=== PATIENT | male | born 1985 | race Two or more races ===

== ENCOUNTER 2019-01-04 18:37 | Emergency (ER) | payer MEDICAID ==
[~2019-01-04] VITALS: Ht 193 cm; Wt 108.9 kg
[2019-01-04 18:28] VITALS: BP 110/80
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
[~2019-01-04 18:37] MED LIST: CELEXA20 MG ORAL; LISINOPRIL20 MG ORAL; SEROQUEL200 MG ORAL; TERAZOSIN HCL1 MG ORAL; TRAZODONE HCL50 MG ORAL
--- NOTE | 2019-01-04 18:40 | NUR ---
ED Nurse Note: pt denies SI/HI, denies hearing voices or seeing things.
[2019-01-04] MEDS ORDERED: TERAZOSIN HCL1 MG ORAL (18:46)
[2019-01-04] MEDS ORDERED: SEROQUEL200 MG ORAL (18:46)
[2019-01-04] MEDS ORDERED: TRAZODONE HCL50 MG ORAL (18:46)
[2019-01-04] MEDS ORDERED: CELEXA20 MG ORAL (18:46)
[2019-01-04] MEDS ORDERED: LISINOPRIL20 MG ORAL (18:46)
[2019-01-04 18:55] VITALS: BP 110/80
--- NOTE | 2019-01-04 18:55 | NUR ---
ER DISCHARGE NOTE: token provide as requested. psych facility information provide. pt refused to do mini-cog. Patient is cleared to be discharged per ERMD with prescriptions, pt is aox4, on room air, with stable vital signs. pt was given dc and prescription instructions, pt was able to verbalize understanding, pt id band removed. pt is able to ambulate with steady gait. pt took all belongings.
--- NOTE | 2019-01-04 19:05 | NUR ---
ED Nurse Note: Pt overheard by registration staff on the phone saying, "I'm going to kill myself." This nurse went to check on the patient - he responded saying, "I told them I want to go to a [facility]", I asked if he had referrals - no c/o SI.
--- NOTE | 2019-01-04 19:10 | NUR ---
ED Nurse Note: Received report from Susan/ [facility]. Pt has been d/c'd. Waiting for [facility] for transprotation.
--- NOTE | 2019-01-04 19:15 | NUR ---
ED Nurse Note: Luli has provided and handed over to pt by Odin.
--- NOTE | 2019-01-06 07:08 | Emergency Room Report ---
History of Present Illness General Chief Complaint: Medication Refill Source: Patient, EMS Present Illness HPI 34-year-old male presents ED for evaluation. Patient brought in by EMS stating that he needs refills of his medications. History of bipolar. Denies SI or HI. Denies hearing voices. States that he ran out of his medications a few days ago. Denies alcohol or drug use. No other aggravating relieving factors. Denies any other associated symptoms Allergies: Coded Allergies: No Known Allergies (Unverified , 01/04/19) Patient History Past Medical History: psych hx Past Surgical History: none Pertinent Family History: none Social History: Denies: smoking, alcohol use, drug use Immunizations: UTD Reviewed Nursing Documentation: PMH: Agreed; PSxH: Agreed Nursing Documentation-PMH Hx Hypertension: Yes History Of Psychiatric Problem: Yes - bipolar Review of Systems All Other Systems: negative except mentioned in HPI Physical Exam Vital Signs Date Time Temp Pulse Resp B/P (MAP) Pulse Ox O2 Delivery O2 Flow Rate FiO2 01/04/19 18:24 97.9 74 18 110/80 (90) 99 Room Air Sp02 EP Interpretation: reviewed, normal General Appearance: no apparent distress, alert, GCS 15, non-toxic Head: normocephalic, atraumatic Eyes: bilateral eye normal inspection, bilateral eye PERRL ENT: hearing grossly normal, normal pharynx, no angioedema, normal voice Neck: full range of motion, supple/symm/no masses Respiratory: chest non-tender, lungs clear, normal breath sounds, speaking full sentences Cardiovascular #1: regular rate, rhythm, no edema Cardiovascular #2: 2+ carotid (R), 2+ carotid (L), 2+ radial (R), 2+ radial (L) , 2+ dorsalis pedis (R), 2+ dorsalis pedis (L) Gastrointestinal: normal bowel sounds, non tender, soft, non-distended, no guarding, no rebound Rectal: deferred Genitourinary: normal inspection, no CVA tenderness Musculoskeletal: back normal, gait/station normal, normal range of motion, non- tender Neurologic: alert, oriented x3, responsive, motor strength/tone normal, sensory intact, speech normal Psychiatric: no suicidal/homicidal ideation, no delusions, anxious Reflexes: 3+ bicep (R), 3+ bicep (L), 3+ tricep (R), 3+ tricep (L), 3+ knee (R) , 3+ knee (L) Skin: normal color, no rash, warm/dry, well hydrated Lymphatic: no adenopathy Medical Decision Making Homeless Attestation I, The treating physician Dr. Siddiqui, has assessed and agrees that patient is medically stable for discharge to an outpatient disposition. Diagnostic Impression: Primary Impression: Encounter for medication refill ER Course 34-year-old male presents to ED refill of his medication. History of psych and hypertension hospital course: After initial history and physical, patient provides a list of his medications. Patient is very agitated and combative on assessment. No SI or HI. Agreed to provide him with refills of his medications and I will provide him with mental health referrals homeless checklist completed. Diagnosis-encounter for medication refill Stable and discharged to home with refills of his medications. Followup with PMD/psych. Return to ED if symptoms recur or worsen Notes: She was overheard in waiting room very agitated and combative stating that he wants to go to a psychiatric hospital. Our charge nurse went to evaluate the patient. Patient never endorsed SI or HI to EMS or myself. never stated to EMS or myself that he wanted to be evaluated by psychiatry. Patient still denies SI or HI to charge nurse. Denies having a plan. Patient states he does have referrals and is requesting transportation token. Last Vital Signs Date Time Temp Pulse Resp B/P (MAP) Pulse Ox O2 Delivery O2 Flow Rate FiO2 01/04/19 18:55 97.9 74 18 110/80 99 Room Air Disposition: HOME, SELF-CARE Condition: Stable Scripts Trazodone Hcl* (DESYREL*) 50 Mg Tablet 50 MG ORAL BEDTIME for 7 Days, TAB Prov: Trell Siddiqui MD 01/04/19 Terazosin Hcl* (HYTRIN*) 1 Mg Capsule 1 MG ORAL BEDTIME, #7 CAP 0 Refills Prov: Trell Siddiqui MD 01/04/19 Quetiapine Fumarate* (SEROQUEL*) 200 Mg Tablet 400 MG ORAL DAILY for 30 Days, TAB Prov: Trell Siddiqui MD 01/04/19 Lisinopril (LISINOPRIL*) 20 Mg Tablet 20 MG ORAL DAILY, #30 TAB Prov: Trell Siddiqui MD 01/04/19 Citalopram Hydrobromide* (CELEXA*) 20 Mg Tablet 30 MG ORAL DAILY for 30 Days, TAB Prov: Trell Siddiqui MD 01/04/19 Referrals: [facility]ERR[facility] (PCP) [facility] Psych ER - Peds ER - [facility] Patient Instructions: Medicine Refill at the Emergency Department Trell Siddiqui MD Jan 06, 2019 07:08
== END 2019-01-04 18:55 | disposition home or self-care (01) ==
LOC: EDBD 18:37 → EMR 18:50
DX: Z76.0 Encounter for issue of repeat prescription (principal); F31.9 Bipolar disorder, unspecified; I10 Essential (primary) hypertension
CPT/HCPCS: 99282